=== PATIENT | male | born 1945 | race Caucasian/White ===

== ENCOUNTER 2019-10-30 09:29 | Emergency (ER) | payer OTHER ==
[~2019-10-30] VITALS: Ht 172.7 cm; Wt 85.7 kg
[2019-10-30] MEDS ORDERED: SIMVASTATIN20 MG PO (09:51)
[2019-10-30] MEDS ORDERED: ASPIRIN81 MG PO (09:52)
[2019-10-30] MEDS ORDERED: ALOGLIPTIN12.5 MG PO (09:52)
[2019-10-30] MEDS ORDERED: CHLORTHALIDONE25 MG PO (09:52)
[2019-10-30] MEDS ORDERED: GLIPIZIDE10 MG PO (09:52)
[2019-10-30] MEDS ORDERED: PREDNISONE20 MG PO (10:44)
[2019-10-30] MEDS ORDERED: GABAPENTIN100 MG PO (10:44)
== END 2019-10-30 11:30 | disposition home or self-care (01) ==
LOC: ED 09:29
DX: M54.41 Lumbago with sciatica, right side (principal); E11.9 Type 2 diabetes mellitus without complications; I10 Essential (primary) hypertension; Z79.899 Other long term (current) drug therapy; Z79.84 Long term (current) use of oral hypoglycemic drugs; Z79.82 Long term (current) use of aspirin
CPT/HCPCS: 99283

== ENCOUNTER 2019-11-21 12:26 | Emergency (ER) | payer OTHER ==
[~2019-11-21] VITALS: Ht 172.7 cm; Wt 85.7 kg
[~2019-11-21 12:26] MED LIST: ALOGLIPTIN12.5 MG PO; ASPIRIN81 MG PO; CHLORTHALIDONE25 MG PO; GABAPENTIN100 MG PO; GLIPIZIDE10 MG PO; PREDNISONE20 MG PO; SIMVASTATIN20 MG PO
--- OUTSIDE RECORDS SUMMARY | 2019-11-21 12:30 | XMS ---
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 - 2 Visits in 30 Days CARE PROVIDERS There are no care providers on record at this time. Sharif has no Care Guidelines for this patient. [facility] (12 MO.) [facility] NOTE: Visits indicate total known visits. [facility] V[facility]IT TRACKING (12 MO.) [facility] COMPLAINT: - R SIDE SCIATIC NERVE PAIN 10/30/2019 09:[address] 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
[2019-11-21] MEDS ORDERED: NORCO 5-325 TA1 EACH PO (14:48)
== END 2019-11-21 14:56 | disposition home or self-care (01) ==
LOC: ED 12:26
DX: M54.31 Sciatica, right side (principal); I10 Essential (primary) hypertension; E11.9 Type 2 diabetes mellitus without complications; Z79.899 Other long term (current) drug therapy; Z79.84 Long term (current) use of oral hypoglycemic drugs; Z79.82 Long term (current) use of aspirin
CPT/HCPCS: 99283

== ENCOUNTER 2020-03-08 18:14 | Emergency (ER) | payer OTHER ==
[~2020-03-08] VITALS: Ht 167.6 cm; Wt 88.0 kg
[~2020-03-08 18:14] MED LIST changes: +NORCO 5-325 TA1 EACH PO
[2020-03-08] MEDS ORDERED: NORCO 5-325 TA1 EACH PO (19:15)
== END 2020-03-08 19:47 | disposition home or self-care (01) ==
LOC: ED 18:14
DX: S62.112A Displaced fracture of triquetrum [cuneiform] bone, left wrist, initial encounter for closed fracture (principal); W18.09XA Striking against other object with subsequent fall, initial encounter; E11.9 Type 2 diabetes mellitus without complications; I10 Essential (primary) hypertension; Z79.899 Other long term (current) drug therapy; Z79.82 Long term (current) use of aspirin
CPT/HCPCS: 29125; 73110; 99283-25

== ENCOUNTER 2020-09-06 18:52 | Emergency (ER) | payer OTHER ==
[~2020-09-06] VITALS: Ht 167.6 cm; Wt 88.0 kg
[2020-09-06] MEDS ORDERED: HYDROCODON-ACE1 EA10 PO (23:30)
[2020-09-19] MEDS ORDERED: ACTOS45 MG PO (16:31)
[2020-09-20] MEDS ORDERED: ACTOS45 MG (14:23)
[2020-09-20] MEDS ORDERED: CHILDREN'S ASPI81 M1 PO (14:23)
[2020-09-20] MEDS ORDERED: ALENDRONATE SOD70 MG PO (14:23)
[2020-09-20] MEDS ORDERED: VITAMIN D21250 MCG (14:24)
== END 2020-09-07 00:10 | disposition home or self-care (01) ==
LOC: ED 18:52
DX: S52.022A Displaced fracture of olecranon process without intraarticular extension of left ulna, initial encounter for closed fracture (principal); X50.9XXA Other and unspecified overexertion or strenuous movements or postures, initial encounter; Y99.0 Civilian activity done for income or pay; E11.9 Type 2 diabetes mellitus without complications; I10 Essential (primary) hypertension; Z79.899 Other long term (current) drug therapy; Z79.82 Long term (current) use of aspirin
CPT/HCPCS: 71101; 73080; 99283-25

== ENCOUNTER 2020-09-23 07:30 | Day surgery (SDC) | payer OTHER ==
[~2020-09-23] VITALS: Ht 167.6 cm; Wt 88.2 kg
[~2020-09-23 07:30] MED LIST changes: +ACTOS45 MG; +ACTOS45 MG PO; +ALENDRONATE SOD70 MG PO; +CHILDREN'S ASPI81 M1 PO; +HYDROCODON-ACE1 EA10 PO; +VITAMIN D21250 MCG
--- NOTE | 2020-09-23 08:26 | NUR ---
SEPTEMBER 06 FELL FX ELBOW, TRIPPED OVER CURB.
[2020-09-23] MEDS ORDERED: CELECOXIB200 MG PO (10:21)
[2020-09-23] MEDS ORDERED: HYDROCODON-ACE1 EA10 PO (10:21)
--- NOTE | 2020-09-23 11:47 | NUR ---
09/23/20 1147 Yola Tubbs 1033 PT ARRIVED IN PACU SLEEPY. NOTICED A SMALL CUT ON CENTER OF UPPER LIP. ANESTHESIA AWARE. 1040 LISA "IT HURTS, IT HURTS." 1042 C/O L ELBOW PAIN 10/10. FENTANYL 50MCG GIVEN IVP. 1053 CONTINUES TO YELL OUT IN PAIN. MOVING AROUND IN BED AND GRABBING AT L ARM. RATES PAIN 10/10. FENTANYL 50MCG GIVEN IVP. 1055 TC TO ANESTHESIA WITH NEW ORDERS RECEIVED. [id number] ANESTHESIA AT BEDSIDE DOING A BLOCK FOR PAIN CONTROL. 1126 OFIRMEV 1GM IV GIVEN FOR PAIN CONTROL. 1140 ANESTHESIA AT BEDSIDE. PAIN DOWN TO 5/10. BLOOD SUGAR 120.
--- NOTE | 2020-09-23 12:20 | OR ---
[facility] [address], [place] [address] Signed DATE OF OPERATION: 09/23/2020 SURGEON: Binh Ponce MD PREOPERATIVE DIAGNOSIS: Left triceps avulsion. POSTOPERATIVE DIAGNOSIS: Left triceps avulsion. PREOPERATIVE DIAGNOSIS: Left triceps repair. OVERLOCK HEMMER: Madelyn Jackson PA-C. ANESTHESIA: General. TOURNIQUET TIME: 30 minutes. IMPLANTS: 3.9 SwiveLock. BRIEF HISTORY: Faizan is a 75-year-old gentleman who suffered a fall at work and injured his elbow. Radiographs showed a small he had weakness in triceps and elbow extension. CT scan confirmed this. Risks and benefits of operative treatment were discussed with him and he elected to proceed. DESCRIPTION OF PROCEDURE: Once consent was obtained, he was taken to the operating room. After adequate anesthesia, he was placed in the prone position on chest rolls. All downside pressure points were well checked. The abdomen was then prepped and draped in a standard sterile fashion. A sterile tourniquet was applied. The arm was exsanguinated and tourniquet inflated to 200 mmHg. A standard posterior approach through a curvilinear incision was taken through skin and subcutaneous tissue. The triceps was identified and was retracted about 3 cm. The avulsion was then debrided of soft tissue and debris and a little bit of the bone. The bony end of the olecranon was also debrided. Once this was Electronically Signed By: BINH PONCE MD 09/23/20 1220 PATIENT NAME: FAIZAN LEIJA OPERATIVE REPORT DATE OF : 47 REPORT #: [id number] PHYSICIAN: BINH PONCE MD PCP: DANITA COYNE MD REPORT IS CONFIDENTIAL AND NOT TO BE RELEASED WITHOUT AUTHORIZATION [facility] [address], [place] [address] Signed accomplished, then two #2 FiberWire were placed in a Krackow type situation starting at the proximal attachment of the triceps and going proximally from that. Once this was accomplished, two FiberLinks were placed through the triceps as well. Two 2 mm drill holes were then placed from the distal into the olecranon coming out dorsally. A [employer] suture passer was then used to pass all three sutures on each side. The two repair sutures were then pulled distally to tighten it and then in a standard double row technique, one suture was placed in the FiberLink on its concurrent side, one on the opposite side, they were pulled back through creating a looped double row transosseous repair. These were pulled distally and held and a 3.9 SwiveLock was drilled in the ulna just distal to where the two drill holes come out. Both suture was then placed through this and the construct was tensioned. SwiveLock was then placed in the bone and impacted until it was well-seated and screwed into place. The suture ends were released. We were able to get 110 degrees of flexion with no gapping at the repair site. The wound was copiously irrigated with normal saline, closed with 3-0 Monocryl and michael. Wound was dressed with Allevyn dressing and a posterior splint. He tolerated the procedure well. All sponge, needle, and instrument counts were correct. Binh Ponce MD BA/NOEMI /[id number] Copies: ~ Electronically Signed By: BINH PONCE MD 09/23/20 1220 PATIENT NAME: HELADIOFAIZAN DOMO OPERATIVE REPORT DATE OF : 47 REPORT #: [id number] PHYSICIAN: BINH PONCE MD PCP: DANITA COYNE MD REPORT IS CONFIDENTIAL AND NOT TO BE RELEASED WITHOUT AUTHORIZATION
--- NOTE | 2020-09-23 13:44 | NUR ---
AMB IN HALLWAY TO BR. FOFANA QS.
--- NOTE | 2020-09-23 14:21 | NUR ---
HAVE GONE OVER DC INSTRUCTIONS WITH PT AND . HAS POSTERIOR SPLINT AND JOSE RAUL WRAP TO STAY ON TILL APPT. SLING PUT ON L ARM NO CONTROL WITH BLOCK. SOON HE CAN FEEL ARM DOESNT NEED SLING ITS JUST TO KEEP ARM IN FRONT OF HIM. HAS ARM BRACE HE WORE IN, TO NOT WEAR UNTIL SAYS.
--- NOTE | 2020-09-23 14:26 | NUR ---
HAS EATEN CRACKERS AND JELLO AND DRANK 200MLS WATER.
== END 2020-09-23 13:50 | disposition home or self-care (01) ==
LOC: OPS 07:30 → DS 07:30 → OPS 09:15 → DS 11:30 → OPS 11:30
PROVIDERS: ATTEND Specialist
PROC: 0KQ80ZZ Repair Left Upper Arm Muscle, Open Approach (ICD-10-PCS; principal; 2020-09-23 09:15)
DX: S46.392A Other injury of muscle, fascia and tendon of triceps, left arm, initial encounter (principal); S52.132A Displaced fracture of neck of left radius, initial encounter for closed fracture; S52.122A Displaced fracture of head of left radius, initial encounter for closed fracture; S52.022A Displaced fracture of olecranon process without intraarticular extension of left ulna, initial encounter for closed fracture; W19.XXXA Unspecified fall, initial encounter
CPT/HCPCS: 01710; 64415; 76942; C1713; J0131; J0330; J0690; J0735; J1100; J1885; J2001; J2250; J2405; J2704; J2765; J2795; J3010; J7121

== ENCOUNTER 2020-10-26 09:34 | Emergency (ER) | payer OTHER ==
[~2020-10-26] VITALS: Ht 167.6 cm; Wt 88.5 kg
[~2020-10-26 09:34] MED LIST changes: +CELECOXIB200 MG PO
== END 2020-10-26 15:27 | disposition home or self-care (01) ==
LOC: ED 09:34
DX: U07.1 COVID-19 (principal); E11.9 Type 2 diabetes mellitus without complications; I10 Essential (primary) hypertension; Z79.899 Other long term (current) drug therapy; Z79.82 Long term (current) use of aspirin
CPT/HCPCS: 71045; 80053; 85025; 99283-25; C9803; M0245; U0003

== ENCOUNTER 2021-07-02 17:55 | Emergency (ER) | payer OTHER ==
[~2021-07-02] VITALS: Ht 167.6 cm; Wt 87.7 kg
--- OUTSIDE RECORDS SUMMARY | 2021-07-02 17:56 | XMS ---
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 Care History Medical/Surgical 11/22/2019 [facility] \T\middot;\T\nbsp; PATIENT IS A -RECEIVES SERVICES THROUGH [facility] IN [place]. \T\middot;\T\nbsp; Location: [address], [place] [address]- E.D. VISIT COUNT (12 MO.) 3 [facility] TOTAL 3 NOTE: Visits indicate total known visits. 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 - Essential (primary) hypertension - Type 2 diabetes mellitus without complications 09/06/2020 18:54 [facility] TYPE: Emergency COMPLAINT: - FALL/ LT SIDED PAIN/ INJ DIAGNOSES: - Type 2 diabetes mellitus without complications - Essential (primary) hypertension - Other and unspecified overexertion or strenuous movements or postures, initial encounter - meterman (current) use of aspirin - Displaced fracture of olecranon process without intraarticular extension of left ulna, initial encounter for closed fracture - 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
[2021-07-02] MEDS ORDERED: BENZONATATE100 MG PO (22:20)
== END 2021-07-02 22:48 | disposition home or self-care (01) ==
LOC: ED 17:55
DX: J20.9 Acute bronchitis, unspecified (principal); I10 Essential (primary) hypertension; E11.9 Type 2 diabetes mellitus without complications; Z79.899 Other long term (current) drug therapy; Z79.82 Long term (current) use of aspirin
CPT/HCPCS: 71046; 99283-25; U0003

== ENCOUNTER 2023-02-16 11:17 | Emergency (ER) | payer OTHER ==
[~2023-02-16] VITALS: Ht 167.6 cm; Wt 83.0 kg
[~2023-02-16 11:17] MED LIST changes: +BENZONATATE100 MG PO
[2023-02-16] MEDS ORDERED: PREDNISONE20 MG PO (14:03)
[2023-02-16 14:07] VITALS: BP 133/70
== END 2023-02-16 14:07 | disposition home or self-care (01) ==
LOC: ED 11:17
DX: M47.817 Spondylosis without myelopathy or radiculopathy, lumbosacral region (principal); M43.17 Spondylolisthesis, lumbosacral region; M48.07 Spinal stenosis, lumbosacral region; I10 Essential (primary) hypertension; E11.9 Type 2 diabetes mellitus without complications; Z79.899 Other long term (current) drug therapy; Z79.84 Long term (current) use of oral hypoglycemic drugs
CPT/HCPCS: 72131; 99283-25; J7512

== ENCOUNTER 2024-09-28 19:00 | Emergency (ER) | payer OTHER ==
[~2024-09-28] VITALS: Ht 167.6 cm; Wt 80.0 kg
[2024-09-28] MEDS ORDERED: DIPHTH,PERTUSS(ACELL),TET VAC 0.5 ML SYRINGE IM ONE (19:30)
[2024-09-28 20:35] VITALS: BP 130/69
== END 2024-09-28 20:40 | disposition home or self-care (01) ==
LOC: ED 19:00
DX: S61.311A Laceration without foreign body of left index finger with damage to nail, initial encounter (principal); I10 Essential (primary) hypertension; E11.9 Type 2 diabetes mellitus without complications; Z79.899 Other long term (current) drug therapy; W26.0XXA Contact with knife, initial encounter
CPT/HCPCS: 12002; 90471; 90715; 99282-25